=== PATIENT | female | born 1990 | race Caucasian/White ===

== ENCOUNTER 2025-07-09 18:49 | Emergency (ER) | payer OTHER, BC, SELFPAY ==
[2025-07-09 19:10] VITALS: BP 140/85
[2025-07-09 21:46] VITALS: BP 126/78
--- NOTE | 2025-07-09 22:07 | ED.GENMED ---
History of Present Illness
General
Chief Complaint: Bowel Problem
Source: patient and spouse
Exam Limitations: none
Time Seen by Provider: 07/09/25 21:46
Nursing documentation reviewed up to this point in time: agreed with
History of Present Illness
History of Present Illness:
35-year-old female with no reported chronic medical issues who is 35 weeks (follows with [facility]) who presents to the emergency department for evaluation of constipation. Patient reports that throughout her 2nd and 3rd
trimester she has had intermittent constipation that has responded well to MiraLAX, Colace and increase fiber. She says that over the past few days she has been constipated and has had trouble passing stool. She says that she feels a hard piece of
stool in her rectum that she is not able to pass. She says that she feels her hemorrhoids are getting worse. She was initially seen in urgent care and they told her to increase MiraLAX and try some Preparation H for hemorrhoids however despite
this she has still not been able to have a significant bowel movement in the past 48 hours. Called her [employer]GE who referred her to the ER. Thankfully she does not have any abdominal pain. She has not had any vaginal bleeding or discharge or any
other acute issues.
Past History
Past History
ED Past Medical History: Other
ED Past Surgical History: None
Social History
Tobacco: Non-smoker
Alcohol: None
Drug: None
Personal:
Living: with family
Employment: Employed
Review of Systems
Review of Systems
All Other Systems: ROS reviewed and negative except as documented in HPI and ROS
Constitutional: Denies fever
Respiratory: Denies trouble breathing
Cardiac: Denies chest pain
ABD/GI: Reports constipated; Denies abdominal pain, nausea or vomiting
: Denies dysuria or bleeding
Phy Exam
Physical Exam
Physical Exam:
General: Awake, alert; no acute distress
Head: Normocephalic, atraumatic
Eyes: Conjunctiva normal
Throat: Airway intact, handling secretions
Neck: Trachea midline
Lungs: Breathing comfortably not in distress
Heart: Regular rate
Abd: Soft, appropriate size for gestational age and nontender
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
Neuro: Grossly intact
Extremities: Warm and well-perfused
Scores
Heart Failure Risk
Heart Failure Risk Score: Not Applicable
Heart Score for Chest Pain Patients
STEMI patient?: Not applicable
Withdrawal Assessment of Alcohol
Withdrawal Assessment Completed?: Not applicable
Course
Orders/Labs/Results
Orders:
Orders
07/09/25 21:58
Enema- Treatment ONCE
Type: Milk of Molasses
07/09/25 23:42
Lidocaine 2% [Lidocaine Uro-Jet 2%] 1 syringe .ROUTE .[facility]
07/09/25 23:45
Lidocaine 2% [Lidocaine Uro-Jet 2%] 1 syringe TOPICAL NOW STA
Vital Signs
Initial and Last Documented VS:
Initial Vital Signs
Temp Pulse Resp BP Pulse Ox
36.6 C 100 13 140/85 98
07/09/25 19:10 07/09/25 19:10 07/09/25 19:10 07/09/25 19:10 07/09/25 19:10
Last Documented Vital Signs
Temp Pulse Resp BP Pulse Ox
36.4 C 96 15 126/78 97
07/09/25 21:46 07/09/25 21:46 07/09/25 21:46 07/09/25 21:46 07/09/25 22:12
MDM/Problems Addressed
Differential Diagnosis Includes:
Fecal impaction, constipation
MDM/Problems Addressed:
35-year-old female who is 35 weeks presents to the ER for constipation. Has been taking Colace and MiraLAX as well as increased fiber but having hard time passing stool over the past few days. Vitals and exam as above�she did have a fecal
impaction on rectal examination today. I was able to disimpact her at bedside. Will provide an enema here and reassess�likely can discharge to continue bowel regiment.
Patient received 2 enemas here he was able to have a bowel movement. She did have some rectal bleeding after enema from hemorrhoids which resolved quickly. Plan to discharge to continue bowel regimen as an outpatient. All questions answered.
*Pulse Oximetry
SaO2: 97
Oxygen Mode of Delivery: Room air
Patient hypoxic: no (97%)
*Critical Care Note
Total Time (30-74mins, 75-104mins- exclusive of procedures): Not Applicable
Data Reviewed
Source: patient
Further Testing Considered But Not Given:
Considered need for abdominal imaging such as x-ray or CT
ED Attending Note
-
Portions of this chart may have been created with voice recognition software.� Occasional wrong word or��sound alike� substitutions may have occurred due to the inherent limitations of voice recognition software.
Discharge Plan
Departure
Patient Disposition: Home (Routine Discharge)
Date of Disposition: 07/10/25
Time of Disposition: 01:39
Patient with high blood pressure during this ER visit?: No
Discharge Problem:
Constipation, Fecal impaction
Instructions: Constipation, Adult (DC), Fecal Impaction (DC)
Prescriptions:
No Action
PNV no.95-ferrous fumarate-FA [] 1 EACH tablet
1 ea PO DAILY
acetaminophen 325 MG tablet
650 mg PO Q4HPRN PRN (Reason: mild pain) 0RF
sennosides-docusate sodium 1 TABLET tablet
1 tab PO DAILYPRN PRN (Reason: constipation) Qty: 30 0RF
ibuprofen 600 MG tablet
600 mg PO Q6HPRN PRN (Reason: moderate pain/cramps) Qty: 60 0RF
Referrals:
Tierra Ocampo, DO [Active, Gynecology] - Keep scheduled appt
Activity Restrictions/Additional Instructions:
Thank you for visiting the Emergency Department at [facility].
1. Please schedule a follow up appointment as directed. Call first thing tomorrow morning to make an appointment.
2. If indicated, please take your medications as instructed and indicated on discharge paperwork.
3. If any of your symptoms do not improve, or persist, or become more severe within 6-12 hours, please return to the emergency department for further care.
4. Please return to the emergency department if you develop a headache, neck pain/stiffness, fever greater than 100.4F, chest pain, shortness of breath, persistent nausea, vomiting, slurred speech, difficulty walking, numbness/tingling, weakness,
signs of infection or any other symptoms that are worrisome to you.
Please call [phone] if you have any questions.
Interventions
Interventions:
*Risk Screen - Suicide Last Done: 07/09/25 19:10
*General Assessment Last Done: 07/09/25 19:10
*Neglect/Abuse Screening Last Done: 07/09/25 19:10
*ED- Fall Risk Assessment Last Done: 07/09/25 21:45
*ED COVID-19 Vaccine History Last Done: 07/09/25 19:10
*ED Influenza Vaccine History Last Done: 07/09/25 19:12
XO-Eqgiea-Fmzwrwblzw Assessment Last Done: 07/10/25 00:06
Discharge Date and Time
Print Language: FAROESE
[2025-07-09] MEDS: LIDOCAINE URO-JET 2% 1 SYRINGE TOPICAL (23:46)
== END 2025-07-10 01:50 | disposition home or self-care (01) ==
LOC: EMR 18:49
PROVIDERS: EMERGENCY PHYSICIAN Emergency Medicine; FAMILY PHYSICIAN Family Medicine
DX: O99.613 Diseases of the digestive system complicating pregnancy, third trimester (principal); K56.41 Fecal impaction; O22.43 Hemorrhoids in pregnancy, third trimester; Z3A.35 35 weeks gestation of pregnancy
CPT/HCPCS: 99282

== ENCOUNTER 2025-08-05 19:37 | Inpatient (IN) | payer OTHER, BC, SELFPAY ==
[2025-08-05 19:54] VITALS: BP 139/80; BMI 38.6
[2025-08-05] MEDS: CYTOTEC 25 MICROGRAM VAG (20:37)
[2025-08-05 21:03] LABS: Hematocrit 39.3 % (37.0-47.0); Hemoglobin 13.4 g/dL (12.0-16.0); Mean Corp Hgb Conc. 34.1 g/dL (33.0-37.0); Mean Corpuscular Volume 88.1 fL (81.0-99.0); Nucleated Red Blood Cells % 0 %; Platelet Count 208 10^3/uL (130-400); Red Cell Dist. Width 13.5 % (11.5-14.5)
[2025-08-05] MEDS: LR 1000 IV (22:47)
[2025-08-06] MEDS: PENICILLIN 110 UNITS IV (00:38)
[2025-08-06] MEDS: LR 1000 IV (02:01)
[2025-08-06] MEDS: SUBLIMAZE 100 MCG EPIDURAL (02:10)
[2025-08-06] MEDS: FENTANYL/BUPIVACAINE 100 EPIDURAL (02:10)
[2025-08-06] MEDS: PITOCIN 30 UNITS/NSS 500 ML IV (04:08)
[2025-08-06] MEDS: PRENATAL PLUS 1 TABLET PO (08:23)
[2025-08-06] MEDS: COLACE 100 MG PO ×2 (08:23→19:35)
[2025-08-06] MEDS: MOTRIN 600 MG PO ×2 (08:26→19:35)
[2025-08-06] MEDS: TYLENOL 650 MG PO (14:10)
[2025-08-07 04:37] LABS: Hematocrit 34.4 % (37.0-47.0); Hemoglobin 11.8 g/dL (12.0-16.0)
[2025-08-07] MEDS: MOTRIN 600 MG PO ×2 (08:12→18:48)
[2025-08-07] MEDS: COLACE PO ×2 (08:12→21:45)
[2025-08-07] MEDS: PRENATAL PLUS 1 TABLET PO (08:13)
[2025-08-07] MEDS: COLACE 100 MG PO (15:53)
[2025-08-08] MEDS: MOTRIN 600 MG PO (04:55)
[2025-08-08] MEDS: PRENATAL PLUS 1 TABLET PO (08:15)
[2025-08-08] MEDS: COLACE 100 MG PO (08:15)
[2025-08-09 11:43] LABS: Syphilis/T. pallidum Ab Reflex Negative (Negative)
== END 2025-08-08 10:27 | disposition home or self-care (01) | DRG 807 ==
LOC: LDRP 19:37
PROVIDERS: ADMITTING PHYSICIAN Obstetrics & Gynecology; FAMILY PHYSICIAN Family Medicine
PROC: 3E0P7VZ Introduction of Hormone into Female Reproductive, Via Natural or Artificial Opening (ICD-10-PCS; 2025-08-05)
PROC: 0HQ9XZZ Repair Perineum Skin, External Approach (ICD-10-PCS; 2025-08-06)
PROC: 10E0XZZ Delivery of Products of Conception, External Approach (ICD-10-PCS; 2025-08-06)
DX: O99.824 Streptococcus B carrier state complicating childbirth (principal); Z37.0 Single live birth; O69.1XX0 Labor and delivery complicated by cord around neck, with compression, not applicable or unspecified; O32.6XX0 Maternal care for compound presentation, not applicable or unspecified; O70.0 First degree perineal laceration during delivery; Z3A.39 39 weeks gestation of pregnancy; Z14.1 Cystic fibrosis carrier
CPT/HCPCS: 36415; 85014; 85018; 85025; 86780; 86850; 86900; 86901